=== PATIENT | female | born 1995 | race Caucasian/White ===

== ENCOUNTER 2017-10-29 21:24 | Emergency (ER) | payer SELFPAY ==
[~2017-10-29] VITALS: Ht 154.9 cm; Wt 46.0 kg
[2017-10-30 00:12] VITALS: BP 106/63
[2017-10-30] MEDS ORDERED: BACITRACIN ZINC OINT UDPKT TOP ONE (01:00)
[2017-10-30] MEDS ORDERED: AMOXICILLIN/POTASSIUM CLAVULANATE 875/125MG TAB PO ONE (01:00)
== END 2017-10-30 01:31 | disposition home or self-care (01) ==
LOC: ER 22:07
DX: S01.85XA Open bite of other part of head, initial encounter (principal); W54.0XXA Bitten by dog, initial encounter; Y93.89 Activity, other specified; Y92.89 Other specified places as the place of occurrence of the external cause; Y99.8 Other external cause status
CPT/HCPCS: 81025; 99283